=== PATIENT | male | born 1980 | race Caucasian/White ===

== ENCOUNTER 2017-03-02 11:31 | Emergency (ER) | payer OTHER ==
[~2017-03-02] VITALS: Ht 177.8 cm; Wt 181.4 kg
[2017-03-02 11:36] VITALS: BP 146/79
--- NOTE | 2017-03-02 11:45 | NUR ---
PT TRIAGED, PT WILL BE IN BED 2. ERMD NOTIFIED OF PATIENT STATUS.
[2017-03-02] MEDS ORDERED: NACL 0.9% 2,000 ML IV ONE (11:55)
--- NOTE | 2017-03-02 11:55 | NUR ---
Patient to bed 02.
--- NOTE | 2017-03-02 12:00 | NUR ---
37/M BIB FAMILY C/O DIZZINESS AND POLYURIA x 2 WEEKS. HX: HYPOTHYROID. DENIES N/V/D; SKIN IS PINK/WARM/DRY; AAOX4 WITH EVEN AND STEADY GAIT; LUNGS CLEAR BL; HR EVEN AND REGULAR; PT DENIES ANY FEVER, CP, SOB, OR COUGH AT THIS TIME; PATIENT STATES PAIN OF 0/10 AT THIS TIME; VSS; PATIENT POSITIONED FOR COMFORT; HOB ELEVATED; BEDRAILS UP X2; BED DOWN. ER MD MADE AWARE OF PT STATUS.
[2017-03-02 12:36] LABS: BASOPHILS # (AUTO) 0.4 K/uL (0.00-0.22); BASOPHILS % (AUTO) 3.2 % (0.0-2.0); EOSINOPHILS # (AUTO) 0.4 K/uL (0-0.4); EOSINOPHILS % (AUTO) 3.2 % (0.0-4.0); HEMATOCRIT 50.6 % (36-52); HEMOGLOBIN 16.6 g/dL (12.0-18.0); LYMPHOCYTES # (AUTO) 3.4 K/uL (2.0-11.5); LYMPHOCYTES % (AUTO) 29.3 % (20.5-51.1); MEAN CORPUSCULAR HEMOGLOBIN 26 pg (27-31); MEAN CORPUSCULAR HGB CONC 33 g/dL (33-37); MEAN CORPUSCULAR VOLUME 80 fL (80-94); MONOCYTES # (AUTO) 0.7 K/uL (0.8-1.0); MONOCYTES % (AUTO) 5.9 % (1.7-9.3); NEUTROPHILS # (AUTO) 6.8 K/uL (1.8-7.7); NEUTROPHILS % (AUTO) 58.4 % (42.2-75.2); PLATELET COUNT (AUTO) 217 K/uL (140-450); RED BLOOD CELL COUNT(AUTO) 6.34 MIL/uL (4.20-6.10); RED CELL DISTRIBUTION WIDTH 16.3 % (11.6-13.7); WHITE BLOOD COUNT (AUTO) 11.7 K/uL (4.8-10.8)
[2017-03-02 13:21] LABS: APPEARANCE,URINE CLEAR (CLEAR); BILIRUBIN,URINE 1+ (NEGATIVE); BLOOD, URINE NEGATIVE (NEGATIVE); COLOR,URINE YELLOW (YELLOW); LEUKOCYTE ESTERASE ,URINE NEGATIVE (NEGATIVE); NITRITE, URINE NEGATIVE (NEGATIVE); PH,URINE 5.5 (5.0-9.0); UGLUCOSE 3+ (NEGATIVE)
[2017-03-02 13:28] LABS: RBC,URINE 0-5 (RARE) /HPF (0-5); WBC,URINE 0-5 (RARE) /HPF (0-5)
[2017-03-02 13:34] LABS: ACETONE, SERUM NEGATIVE (NEGATIVE)
[2017-03-02 13:57] LABS: ANION GAP 15.9 (8-16); ASPARTATE AMINOTRANSFERASE 234 U/L (15-37); CARBON DIOXIDE 26.5 mmol/L (21-32); CHLORIDE 97 mmol/L (98-107); CREATININE 0.9 mg/dL (0.7-1.3); GFR ARICAN-AMERICAN 123 mL/min (>90); GLUCOSE 377 mg/dL (74-106); POTASSIUM 4.4 mmol/L (3.5-5.1); SODIUM SERUM 135 mmol/L (136-145); TOTAL BILIRUBIN 0.9 mg/dL (0.0-1.0); UREA NITROGEN, BLOOD 9 mg/dL (7-18)
[2017-03-02 13:58] LABS: ALBUMIN 3.3 g/dL (3.4-5.0)
--- NOTE | 2017-03-02 14:29 | NUR ---
IV removed, catheter intact and site benign. Applied folded 4x4 gauze and tape to stop bleeding.
[2017-03-02 14:31] VITALS: BP 127/73
--- NOTE | 2017-03-02 14:31 | NUR ---
Patient discharged with v/s stable. Written and verbal after care instructions given and explained. Patient alert, oriented and verbalized understanding of instructions. Ambulatory with steady gait. All questions addressed prior to discharge. ID band removed. Patient advised to follow up with PMD. Rx of METFORMIN given. Patient educated on indication of medication including possible reaction and side effects. Opportunity to ask questions provided and answered.
[2017-03-02 14:44] LABS: THYROID STIMULATING HORMONE 5.14 uIU/mL (0.34-3.74)
== END 2017-03-02 14:31 | disposition home or self-care (01) ==
LOC: MED 11:31
DX: E11.9 Type 2 diabetes mellitus without complications (principal); R74.0 Nonspecific elevation of levels of transaminase and lactic acid dehydrogenase [LDH]; R03.0 Elevated blood-pressure reading, without diagnosis of hypertension; E03.9 Hypothyroidism, unspecified; Z85.47 Personal history of malignant neoplasm of testis; Z85.118 Personal history of other malignant neoplasm of bronchus and lung
CPT/HCPCS: 36415; 80053; 81001; 82009; 82948; 84443; 85025; 96360; 99284; J7030

== ENCOUNTER 2018-08-18 18:35 | Emergency (ER) | payer OTHER ==
[~2018-08-18] VITALS: Ht 177.8 cm; Wt 188.7 kg
[2018-08-18 18:57] VITALS: BP 140/88
--- NOTE | 2018-08-18 19:00 | NUR ---
ASSUMED CARE OF PT AT THIS TIME. C/O DENTAL PAIN X 2 DAYS. AAOX4 WITH EVEN AND STEADY GAIT; PATIENT STATES PAIN OF 10/10; VSS; PATIENT POSITIONED FOR COMFORT; HOB ELEVATED; BEDRAILS UP X2; BED DOWN. ER MD MADE AWARE OF PT STATUS. WILL CONTINUE TO MONITOR.
[2018-08-18 19:40] VITALS: BP 140/88
--- NOTE | 2018-08-18 19:40 | NUR ---
Patient discharged with v/s stable. Written and verbal after care instructions given and explained. Patient alert, oriented and verbalized understanding of instructions. Ambulatory with steady gait. All questions addressed prior to discharge. ID band removed. Patient advised to follow up with PMD. Rx of MOTRIN AND AUGMENTIN given. Patient educated on indication of medication including possible reaction and side effects. Opportunity to ask questions provided and answered.
== END 2018-08-18 19:40 | disposition home or self-care (01) ==
LOC: MED 18:35
DX: K03.81 Cracked tooth (principal); K04.7 Periapical abscess without sinus; E11.9 Type 2 diabetes mellitus without complications; I10 Essential (primary) hypertension; Z85.47 Personal history of malignant neoplasm of testis
CPT/HCPCS: 99283

== ENCOUNTER 2021-03-01 02:10 | Emergency (ER) | payer OTHER ==
[~2021-03-01] VITALS: Ht 177.8 cm; Wt 180.5 kg
[2021-03-01 02:14] VITALS: BP 160/114
[2021-03-01] MEDS ORDERED: LIDOCAINE MPF 1% 20 ML ONE (02:37)
[2021-03-01] MEDS ORDERED: IBUP-2213 PO (03:28)
== END 2021-03-01 03:26 | disposition home or self-care (01) ==
LOC: MED 02:10
DX: L02.214 Cutaneous abscess of groin (principal)
CPT/HCPCS: 10060; 99284; J2001